=== PATIENT | female | born 1990 | race Caucasian/White ===

== ENCOUNTER 2019-11-04 01:23 | Inpatient (IN) | payer OTHER ==
[~2019-11-04] VITALS: Ht 163.8 cm; Wt 127.0 kg
[2019-11-04 01:38] VITALS: BP 121/77
--- NOTE | 2019-11-04 01:45 | NUR ---
29 YEAR OLD FEMALE COMPLAINS OF BILATERAL FLANK PAIN THAT RADIATES TO THE STOMACH THAT STARTED LAST MONDAY. PATIENT COMPLAINS OF NAUSEA, VOMITTING, PAIN ON URINATION, AND HEMATURIA AT TIMES. BOWEL SOUNDS ACTIVE X4, TENDER, NONDISTENDED, SOFT.PATIENT STATES SHE HAD UTI LAST MONDAY BUT IS TAKING ANTIBIOTICS. PATIENT AOX4, LUNGS CTABL, BREATHING EVEN AND UNLABORED, SKIN WARM AND DRY. BED IN LOWEST POSITION, LOCKED, BED RAIL UPX1. PATIENT PLACED ON MONITOR, ERMD MADE AWARE OF PT STATUS PMH - ANTIPHOSPHOLIPID SYNDROME, SLE ALLERGY - NONE
--- NOTE | 2019-11-04 01:50 | NUR ---
Dr. Hilton examining patient.
[2019-11-04] MEDS ORDERED: NACL 0.9% 1,000 ML IV ONE (02:05)
[2019-11-04] MEDS ORDERED: ONDANSETRON 4 MG/2 ML VIAL IVP ONE (02:05)
[2019-11-04] MEDS ORDERED: MORPHINE SULFATE 4 MG/ML SYR IVP ONE (02:05)
[2019-11-04 02:20] LABS: BASOPHILS # (AUTO) 0.1 K/uL (0.00-0.22); BASOPHILS % (AUTO) 0.6 % (0.0-2.0); EOSINOPHILS # (AUTO) 0.2 K/uL (0-0.4); HEMATOCRIT 33.2 % (36-48); HEMOGLOBIN 10.5 g/dL (12.0-16.0); LYMPHOCYTES # (AUTO) 2.2 K/uL (2.5-16.5); LYMPHOCYTES % (AUTO) 25.9 % (20.5-51.1); MEAN CORPUSCULAR HEMOGLOBIN 24 pg (27-31); MEAN CORPUSCULAR HGB CONC 32 g/dL (33-37); MONOCYTES # (AUTO) 0.7 K/uL (0.8-1.0); MONOCYTES % (AUTO) 8.5 % (1.7-9.3); NEUTROPHILS # (AUTO) 5.3 K/uL (1.8-7.7); PLATELET COUNT (AUTO) 175 K/uL (140-450); RED BLOOD CELL COUNT(AUTO) 4.32 MIL/uL (4.20-5.40); RED CELL DISTRIBUTION WIDTH 17.5 % (11.6-13.7); WHITE BLOOD COUNT (AUTO) 8.4 K/uL (4.8-10.8)
[2019-11-04 02:22] LABS: APPEARANCE,URINE SL CLOUDY (CLEAR); BILIRUBIN,URINE NEGATIVE (NEGATIVE); BLOOD, URINE NEGATIVE (NEGATIVE); COLOR,URINE YELLOW (YELLOW); LEUKOCYTE ESTERASE ,URINE NEGATIVE (NEGATIVE); NITRITE, URINE NEGATIVE (NEGATIVE); UGLUCOSE NEGATIVE (NEGATIVE)
[2019-11-04 02:36] LABS: ALBUMIN 3.2 g/dL (3.4-5.0); ANION GAP 12.8 (8-16); CARBON DIOXIDE 26.8 mmol/L (21-32); POTASSIUM 3.6 mmol/L (3.5-5.1); TOTAL BILIRUBIN 0.2 mg/dL (0.0-1.0)
--- NOTE | 2019-11-04 03:30 | NUR ---
PATIENT ALERT AND AWAKE, BREATHING EVEN AND UNLABORED
[2019-11-04] MEDS ORDERED: cefTRIAXone 2,000 MG in DEXTROSE 5% 100 ML IV ONE (04:25)
[2019-11-04] MEDS ORDERED: cefTRIAXone 2,000 MG VIAL ONE (04:31)
--- NOTE | 2019-11-04 05:06 | NUR ---
PATIENT ALERT AND AWAKE, BREATHING EVEN AND UNLABORED
--- NOTE | 2019-11-04 05:43 | NUR ---
RADIOLOGY CALLED TO CONFIRM CT RESULT DEVIN MADE AWARE
--- NOTE | 2019-11-04 07:26 | NUR ---
XRAY AT BEDSIDE.
--- NOTE | 2019-11-04 07:30 | NUR ---
Recieved report from marielle segundo awake , alert , afibrile , ambulatory with stable v/s. Side rails up x 2 and lock.
[2019-11-04] MEDS ORDERED: MORPHINE SULFATE 2 MG/ML SYR IVP PRN (07:50)
[2019-11-04] MEDS ORDERED: ACETAMINOPHEN 325 MG TAB PO PRN (07:50)
[2019-11-04] MEDS ORDERED: ONDANSETRON 4 MG/2 ML VIAL IVP PRN (07:50)
--- NOTE | 2019-11-04 08:10 | NUR ---
Patient will be admitted to care of dr Nelson. Admited to ms. Will go to room 111b. Belongings list completed. Report to letha houser.
--- NOTE | 2019-11-04 08:15 | NUR ---
RECEIVED PT FROM ED NURSE. PT IS ALERT, AWAKE, WITH NO SIGNS OF DISTRESS NOTED. SKIN IS INTACT WITH IV ASYMPTOMATIC AND PATENT. RESPIRATIONS ARE EVEN AND UNLABORED, PT IS ON RA. PT DOES NOT COMPLAIN OF PAIN AT THIS TIME. VITAL SIGNS ARE STABLE. PT IS AMBULATORY WITH NO ASSISTANCE NEEDED. SAFETY MEASURES IN PLACE, BED IS IN LOW POSITION, CALL LIGHT WITHIN REACH, AND WILL CONTINUE TO MONITOR.
--- NOTE | 2019-11-04 08:53 | NUR ---
PATIENT HAS BEEN SCREENED AND CATEGORIZED LOW NUTRITION RISK. PATIENT WILL BE SEEN WITHIN 7 DAYS OF ADMISSION. 11/10/[address]
[2019-11-04] MEDS: ENOXAPARIN 40 MG/0.4 ML SYR SUBQ SCH (08:54)
[2019-11-04] MEDS: HYDROcodone/APAP 5/325 MG 1 TAB TAB PO PRN ×3 (08:56→21:49)
--- NOTE | 2019-11-04 09:00 | NUR ---
PT COMPLAINS OF 7/10 FLANK AND ABDOMINAL PAIN. MEDICATIONS ADMINISTERED PER ORDER WITH NORCO. WILL REASSESS IN ONE HOUR
[2019-11-04] MEDS: NACL 0.9% 1,000 ML IV SCH ×2 (10:00→17:49)
--- NOTE | 2019-11-04 10:15 | NUR ---
PAIN REASSESSMENT WAS INITIATED AND PT IS CURRENTLY SLEEPING. SAFETY MEASURES IN PLACE.
--- NOTE | 2019-11-04 11:38 | NUR ---
Fabrication Supervisor Note: Basic Screen: Yes High Risk DC Screen Gays: PAT Eason Relationship: MOTHER Pre-Admission Living Arrangements: Lives with Other Prior ADL Independent Current Home Health Name/Tel: N/A Current DME/02 Name/Tel: N/A Current Hospice Name/Tel: N/A Current Dialysis Name/Tel: N/A Healthcare Decision Maker: Patient Advance Directive No Physician Orders for Life Sustaining Treatment Form No Patient/Family Have Educational Needs No Information Taught: Advance Directive Community Resources Person Taught: Patient Teaching Tools: Computer Generated Print Verbal Factors Affecting Learning: None Participation Level: Refused Evaluation: Verbalizes Understanding Needs Additional Education: No Discipline: Case Mgt/Social Svcs Tentative Discharge Plan/Destination: No Needs Identified Will require assistance post discharge: No Referred to Bench Repair Technician: No Tentative Discharge Plan Summary: Patient is a 29-year-old female admitted for UTI. PAtient has PMHX of morbid obesity, antiphospholipid syndrome, systemic lluvia. Patient was admitted from home wee she lives with her parents, sister, and [id number]. SW met with patient at bedside to verify demographics. Patient stated that she has mental health history of schizophrenia. Patient refused mental health resources stating that she has just enrolled with [facility] and is arranging them herself. Patient reports no history of substance abuse. Tentative discharge plan is for patient to return home. No further needs identified. Signature: DICK Montenegro Date: Nov 04, 2019 Time: 11:37
--- NOTE | 2019-11-04 12:16 | NUR ---
PT IS CURRENTLY SLEEPING WITH NO SIGNS OF DISTRESS NOTED. LUNCH IS AT BEDSIDE. WILL CONTINUE TO MONITOR.
--- NOTE | 2019-11-04 14:52 | NUR ---
DC PLANNIN YRS OLD FEMALE PATIENT WAS ADMITTED FROM HOME WITH A DX OF UTI . PT HAS A HX OF LUPUS PULMONARE EMBOLISM AND ANTIPHOSPHOLIPID SYNDROME. ADMINISTERED IV ROCEPHIN ,IVF FOR HYDRATION PAIN MEDICATION ,BLOOD AND URINE CULTURE PENDING. DC PLAN TO GO HOME WHEN STABLE CM TO FOLLOW
--- NOTE | 2019-11-04 15:46 | NUR ---
PT CURRENTLY REPORTS PAIN OF 6/10 IN ABD AREA. MEDICATED WITH NORCO AND TOLERATED WELL. WILL CONTINUE TO MONITOR. VITAL SIGNS WERE STABLE.
[2019-11-04 16:00] VITALS: BP 127/61
--- NOTE | 2019-11-04 16:46 | NUR ---
PAIN REASSESSMENT ESTABLISHED. PT REPORTS A 3/10 PAIN WITH NO OTHER SIGNS OF DISTRESS NOTED. SAFETY MEASURES IN PLACE AND WILL CONTINUE TO MONITOR.
--- NOTE | 2019-11-04 18:50 | NUR ---
PT IS AWAKE AND ALERT WITH NO COMPLAINTS OF PAIN AND SITTING IN BED. WILL ENDORSE TO SOCIALLY RESPONSIBLE INVESTMENT ADVISER NURSE. PT IS IN STABLE CONDITION.
--- NOTE | 2019-11-04 19:25 | NUR ---
RECEIVED BEDSIDE REPORT FROM DAY SHIFT NURSE. PT IS ALERT, AWAKE, WITH NO SIGNS OF DISTRESS NOTED. SKIN IS INTACT WITH IV ASYMPTOMATIC AND PATENT. RESPIRATIONS ARE EVEN AND UNLABORED, PT IS ON RA. PT DOES NOT COMPLAIN OF PAIN AT THIS TIME. PT IS AMBULATORY WITH NO ASSISTANCE NEEDED. SAFETY MEASURES IN PLACE, BED IS IN LOW POSITION, CALL LIGHT WITHIN REACH, AND WILL CONTINUE TO MONITOR.
--- NOTE | 2019-11-04 20:30 | NUR ---
PT C/O PAIN ON SL IV SITE ON LFA 20G. NOT ABLE TO FLUSH. REMOVED IV LINE. CANNULA INTACT. PT TOLERATED WELL.
--- NOTE | 2019-11-04 21:49 | NUR ---
PT C/O PAIN ON RIGHT ANKLE, GIVEN NORCO MD ORDERED. PT TOLERATED WELL.
--- NOTE | 2019-11-04 22:05 | NUR ---
PT C/O ANKLE PAIN TO LEG PAIN AND CONCERN ABOUT DVT, PT HAS HX PE. REPORTED DR. BOX AND RECEIVED ORDER FOR US
[2019-11-05] VITALS: BP 122/55
--- NOTE | 2019-11-05 | NUR ---
VS CHECKED, WITHIN PT'S BASELINE. WILL CONTINUE TO MONITOR.
[2019-11-05] MEDS: NACL 0.9% 1,000 ML IV SCH (00:32)
--- NOTE | 2019-11-05 02:18 | NUR ---
PT SLEEPING IN BED COMFORTABLY. NO ACUTE DISTRESS NOTED.
--- NOTE | 2019-11-05 04:20 | NUR ---
PT SLEEPING IN BED COMFORTABLY. NO ACUTE DISTRESS NOTED.
--- NOTE | 2019-11-05 05:45 | NUR ---
PT C/O 8 PAIN ON R PELVIC, GIVEN MORPHINE MD ORDERED. PT TOLERATED WELL.
--- NOTE | 2019-11-05 07:05 | NUR ---
RECEIVED REPORT FROM WOOD MODEL BUILDER NURSE. PT IS CURRENTLY SLEEPING WITH NO SIGNS OF DISTRESS NOTED. SKIN IS WARM,DRY AND INTACT. IV IN LEFT FOREARM IS ASYMPTOMATIC AND INFUSING PER ORDER. RESPIRATIONS ARE EVEN AND UNLABORED WITH VISIBLE CHEST AND RISE AND FALL, PT ON RA. SAFETY MEASURES IN PLACE, CALL LIGHT WITHIN REACH AND WILL CONTINUE TO MONITOR.
--- NOTE | 2019-11-05 07:20 | NUR ---
ENDORSED PT TO DAY SHIFT NURSEPAT. PT IN STABLE CONDITION.
[2019-11-05 07:21] LABS: BASOPHILS % (AUTO) 0.9 % (0.0-2.0); EOSINOPHILS # (AUTO) 0.2 K/uL (0-0.4); EOSINOPHILS % (AUTO) 2.8 % (0.0-4.0); HEMATOCRIT 32.8 % (36-48); HEMOGLOBIN 10.4 g/dL (12.0-16.0); LYMPHOCYTES # (AUTO) 1.6 K/uL (2.5-16.5); LYMPHOCYTES % (AUTO) 27.1 % (20.5-51.1); MEAN CORPUSCULAR HEMOGLOBIN 24 pg (27-31); MEAN CORPUSCULAR HGB CONC 32 g/dL (33-37); MEAN CORPUSCULAR VOLUME 76.7 fL (80-94); MONOCYTES # (AUTO) 0.6 K/uL (0.8-1.0); MONOCYTES % (AUTO) 10.1 % (1.7-9.3); NEUTROPHILS # (AUTO) 3.4 K/uL (1.8-7.7); NEUTROPHILS % (AUTO) 59.1 % (42.2-75.2); PLATELET COUNT (AUTO) 159 K/uL (140-450); RED BLOOD CELL COUNT(AUTO) 4.28 MIL/uL (4.20-5.40); RED CELL DISTRIBUTION WIDTH 17.1 % (11.6-13.7); WHITE BLOOD COUNT (AUTO) 5.8 K/uL (4.8-10.8)
[2019-11-05 07:31] LABS: ALBUMIN 3.1 g/dL (3.4-5.0); ANION GAP 11.3 (8-16); CARBON DIOXIDE 27.7 mmol/L (21-32); CREATININE 0.9 mg/dL (0.6-1.3); TOTAL BILIRUBIN 0.4 mg/dL (0.0-1.0)
[2019-11-05 08:00] VITALS: BP 111/58
[2019-11-05] MEDS: ENOXAPARIN 40 MG/0.4 ML SYR SUBQ SCH (09:44)
--- NOTE | 2019-11-05 09:51 | NUR ---
PT IS AWAKE AND ALERT. MEDICATIONS ADMINISTERED AND TOLERATED WELL. PT WAS VOMITING AND ZOFRAN WAS ADMINISTERED. SAFETY MEASURES IN PLACE AND WILL CONTINUE TO MONITOR.
--- NOTE | 2019-11-05 11:56 | NUR ---
PT IS AWAKE, ALERT, AND REQUESTED A DIFFERENT LUNCH. PHYSICIAN SAW PT AND STATED THAT MAY BE POSSIBLE DISCHARGE. NO COMPLAINTS OF PAIN AT THIS TIME. WILL CONTINUE TO MONITOR.
[2019-11-05] MEDS ORDERED: CEPH250C16 PO (12:41)
--- NOTE | 2019-11-05 13:48 | NUR ---
Late entry. Confirmed with RN that 0.9 NS IV ended at 0810
--- NOTE | 2019-11-05 14:07 | NUR ---
PT IS CURRENTLY SLEEPING IN BED WITH NO SIGNS OF DISTRESS NOTED. SAFETY MEASURES IN PLACE AND CALL LIGHT WITHIN REACH. DISCHARGE ORDER IN PLACE.
--- NOTE | 2019-11-05 14:11 | NUR ---
Late entry. Confirmed with RN that Rocephin IV ended at 0510
--- NOTE | 2019-11-05 16:45 | NUR ---
PT IS LAYING IN BED AND READY FOR DISCHARGE. PT DOES NOT COMPLAIN OF PAIN. SAFETY MEASURES IN PLACE.
--- NOTE | 2019-11-05 17:00 | NUR ---
PT IS DISCHARGED TO HOME. PT WALKED OFF UNIT WITHOUT ASSISTANCE. SKIN IS INTACT, IV WAS REMOVED WITH LUMEN INTACT AND MINIMAL BLOOD LOSS. RESPIRATIONS WERE EVEN AND UNLABORED WITH NO SIGNS OF DISTRESS NOTED. ID BANDS WERE REMOVED, VACCINATION IS UP TO DATE. DISCHARGE INSTRUCTIONS, MEDICATION PRESCRIPTION GIVEN, AND FOLLOW UP INSTRUCTIONS WITH PCP ADVISED. PT VERBALIZED UNDERSTANDING AND NO FURTHER QUESTIONS WERE ASKED.
== END 2019-11-05 17:00 | disposition home or self-care (01) | DRG 463 ==
LOC: MED 01:23 → MTU 07:53
PROVIDERS: ADMIT Hospitalist; ATTEND Hospitalist
DX: N12 Tubulo-interstitial nephritis, not specified as acute or chronic (principal); D68.61 Antiphospholipid syndrome; M32.9 Systemic lupus erythematosus, unspecified; E66.01 Morbid (severe) obesity due to excess calories; Z68.42 Body mass index [BMI] 45.0-49.9, adult; D63.8 Anemia in other chronic diseases classified elsewhere; Z86.711 Personal history of pulmonary embolism; Z90.49 Acquired absence of other specified parts of digestive tract
CPT/HCPCS: 36415; 71045; 80053; 81003; 83735; 85025; 87040; 87081; 93005; 93970; 96361; 96365; 96375; 99285; J0696; J1650; J2270; J2405; J7030; J7060; Q0092

== ENCOUNTER 2020-06-07 02:37 | Emergency (ER) | payer OTHER ==
[~2020-06-07] VITALS: Ht 162.6 cm; Wt 122.5 kg
[~2020-06-07 02:37] MED LIST: CEPH250C16 PO
[2020-06-07 02:42] VITALS: BP 118/68
--- NOTE | 2020-06-07 02:47 | NUR ---
PT AMBULATED TO BED #3
--- NOTE | 2020-06-07 03:06 | NUR ---
29 Y/O F, CAME IN TO ER WITH C/O CHEST PAIN THAT RADIATES DOWN TO LEFT FA, x1DAY, 03/09. PT REPORTS HAVING FREQUENT PE's, LAST PE WAS IN JANUARY. PT REPORTS NOT COMPLYING TO MEDICATIONS/BLOOD THINNERS. DENIES N/V/D, NO SOB OR DIFFICULTY BREATHING. ON RA, ALL VSS. PT REPORTS EXPERIENCING A NEW SYMPTOM OF SEVERE PRESSURE IN HER HEAD THAT IS CAUSING SOME MENTAL FOGGINESS. PT ALSO REPORTS RECENTLY STARTING A NEW JOB THAT REQUIRES SOME HEAVY LIFTING. PT POSITIONED FOR COMFORT, CONNECTED TO CONTINUOUS MONITORING. SAFETY MEASURES IN PLACE. NKA MED HX: LUPUS, FIBROMYALGIA, ANTIPHOSPHOLIPID SYNDROME
[2020-06-07 03:50] LABS: BASOPHILS # (AUTO) 0.1 K/uL (0.00-0.22); BASOPHILS % (AUTO) 1.1 % (0.0-2.0); EOSINOPHILS # (AUTO) 0.1 K/uL (0-0.4); EOSINOPHILS % (AUTO) 1.9 % (0.0-4.0); HEMATOCRIT 38.7 % (36-48); HEMOGLOBIN 12.2 g/dL (12.0-16.0); LYMPHOCYTES # (AUTO) 1.7 K/uL (2.5-16.5); LYMPHOCYTES % (AUTO) 26.4 % (20.5-51.1); MEAN CORPUSCULAR HEMOGLOBIN 24 pg (27-31); MEAN CORPUSCULAR HGB CONC 32 g/dL (33-37); MEAN CORPUSCULAR VOLUME 75.5 fL (80-94); MONOCYTES # (AUTO) 0.6 K/uL (0.8-1.0); MONOCYTES % (AUTO) 8.7 % (1.7-9.3); NEUTROPHILS # (AUTO) 4.1 K/uL (1.8-7.7); NEUTROPHILS % (AUTO) 61.9 % (42.2-75.2); PLATELET COUNT (AUTO) 160 K/uL (140-450); RED BLOOD CELL COUNT(AUTO) 5.13 MIL/uL (4.20-5.40); RED CELL DISTRIBUTION WIDTH 18.1 % (11.6-13.7); WHITE BLOOD COUNT (AUTO) 6.6 K/uL (4.8-10.8)
[2020-06-07 03:58] LABS: ANION GAP 16.3 (8-16); CARBON DIOXIDE 23.1 mmol/L (21-32); CREATININE 0.9 mg/dL (0.6-1.3); POTASSIUM 4.4 mmol/L (3.5-5.1)
--- NOTE | 2020-06-07 04:10 | NUR ---
IV STARTED ON LEFT AC 20G, ON 3RD ATTEMPT. LABS DRAWN. PT TOLERATED WELL.
[2020-06-07] MEDS ORDERED: ENOXAPARIN 100 MG/ML SYR SUBQ ONE (05:20)
[2020-06-07] MEDS ORDERED: ONDANSETRON 4 MG/2 ML VIAL IVP ONE (05:20)
[2020-06-07] MEDS ORDERED: MORPHINE SULFATE 4 MG/ML SYR IVP ONE (05:20)
--- NOTE | 2020-06-07 05:20 | NUR ---
PT RESTING WELL, UPDATED ON LAB RESULTS. C/O PAIN AND NAUSEA. ORDERS RECEIVED, WILL CARRY OUT. PT VITALS WITHIN RANGE.
[2020-06-07 06:00] VITALS: BP 112/41
--- NOTE | 2020-06-07 06:08 | NUR ---
Note anjelicaflor in EDM - 06/07/20 at 0637 by SUE Patient discharged with v/s stable. Written and verbal after care instructions given and explained. Patient alert, oriented and verbalized understanding of instructions. Ambulatory with steady gait. All questions addressed prior to discharge. ID band removed. Patient advised to follow up with PMD. Rx of XARELTO given. Patient educated on indication of medication including possible reaction and side effects. Opportunity to ask questions provided and answered. PATIENT STABLE.
--- NOTE | 2020-06-07 06:15 | NUR ---
IV removed, catheter intact and site benign. Applied folded 4x4 gauze and tape to stop bleeding.
--- NOTE | 2020-06-07 06:20 | NUR ---
Patient discharged with v/s stable. Written and verbal after care instructions given and explained. Patient alert, oriented and verbalized understanding of instructions. Ambulatory with steady gait. All questions addressed prior to discharge. ID band removed. Patient advised to follow up with PMD. Rx of XARELTO given. Patient educated on indication of medication including possible reaction and side effects. Opportunity to ask questions provided and answered. PATIENT STABLE.
== END 2020-06-07 06:20 | disposition home or self-care (01) ==
LOC: MED 02:37
DX: I26.99 Other pulmonary embolism without acute cor pulmonale (principal); F12.90 Cannabis use, unspecified, uncomplicated
CPT/HCPCS: 36415; 71275; 80048; 81025; 84484; 85025; 85379; 93005; 96372; 96374; 96375; 99285; J1650; J2270; J2405; Q9967

== ENCOUNTER 2021-09-29 21:59 | Emergency (ER) | payer OTHER ==
--- NOTE | 2021-09-29 22:17 | NUR ---
called no show.
--- NOTE | 2021-09-29 22:36 | NUR ---
Called second time no show.
--- NOTE | 2021-09-29 23:02 | NUR ---
Sukhi grimm in [facility] - 09/30/21 at 0321 by [email or web address] Patient LWBS.
--- NOTE | 2021-09-29 23:02 | NUR ---
PATIENT LEFT WITHOUT BEING SEEN BY DR. VO. NO FURTHER CARE PROVIDED FOR PATIENT.
== END 2021-09-29 23:02 | disposition left against medical advice (07) ==
LOC: MED 21:59
DX: N39.0 Urinary tract infection, site not specified (principal); Z53.21 Procedure and treatment not carried out due to patient leaving prior to being seen by health care provider